=== PATIENT | male | born 1980 | race Caucasian/White ===

== ENCOUNTER → 2019-05-23 16:07 | Outpatient (CLI) | payer OTHER, SELFPAY ==
--- NOTE | 2019-05-23 | DI.MRI.S_ITS ---
PROCEDURE: MR LUMBAR SPINE WO CON INDICATIONS: Low Back Pain TECHNIQUE: Noncontrast sagittal T1 spin echo and T2 fast echo, sagittal STIR, axial T1 and T2 fast spin echo through the lumbar spine. In cases with scoliosis, additional coronal T2 fast spin echo may be performed. COMPARISON: [facility], CR, XR LUMBAR SPINE WITH OLBIQUES PLUS FLEXION EXTENSION, 05/06/2019, 9:57. FINDINGS: Image quality: Excellent. Alignment and Curvature: There is normal bony alignment. Bone Marrow: Marrow is of normal overall signal. No acute vertebral body compression fractures. Mild reactive signal within the endplates adjacent to the L3-L4 and L4-L5 intervertebral discs. Spinal Cord: Conus medullaris terminates at the mid L1 level. Visualized cord demonstrates normal signal and size. Paraspinous Soft Tissues: No paravertebral masses. L1-L2: Mild facet and ligamentum flavum hypertrophy. Mild epidural lipomatosis. No significant canal, nor foraminal stenosis. L2-L3: Mild facet and ligamentum flavum hypertrophy. Mild epidural lipomatosis. Minimal canal stenosis. No foraminal stenosis. L3-L4: Moderate disc desiccation. Mild diffuse disc bulge. Mild facet and ligamentum flavum hypertrophy. Mild epidural lipomatosis. Mild canal stenosis. Mild bilateral foraminal stenosis. L4-L5: Moderate disc desiccation. Mild diffuse disc bulge with superimposed central protrusion. Moderate bilateral facet hypertrophy. Mild canal stenosis. Mild bilateral foraminal stenosis. L5-S1: Moderate disc height loss and desiccation. Mild diffuse disc bulge with superimposed small central protrusion. Mild bilateral facet hypertrophy. No significant canal nor foraminal stenosis. IMPRESSION: 1. Multilevel degenerative disc and facet disease, as well as ligamentum flavum hypertrophy and epidural lipomatosis. 2. Multilevel canal and foraminal stenoses. 3. No neural impingement. Dictated by: Alexus Posey M.D. on 05/23/2019 at 16:59 Approved by: Alexus Posey M.D. on 05/23/2019 at 17:02
== END ==
PROVIDERS: Visit Provider Physical Medicine & Rehabilitation Pain Medicine
DX: M54.5 Low back pain (principal); M51.36 Other intervertebral disc degeneration, lumbar region; M51.37 Other intervertebral disc degeneration, lumbosacral region; M48.061 Spinal stenosis, lumbar region without neurogenic claudication; E88.2 Lipomatosis, not elsewhere classified
CPT/HCPCS: 72148

== ENCOUNTER → 2020-03-19 17:12 | Outpatient (CLI) | payer OTHER, SELFPAY ==
--- NOTE | 2020-03-19 | DI.MRI.S_ITS ---
PROCEDURE: MR SHOULDER RT WO CON INDICATIONS: Right shoulder pain TECHNIQUE: Noncontrast oblique coronal T2 fast spin echo with fat saturation, oblique sagittal T1 spin echo and T2 fast spin echo with fat saturation, axial T1 spin echo and T2 fast spin echo with fat saturation through the shoulder. COMPARISON: None. FINDINGS: Image quality: Excellent. Rotator cuff: There is mild tendinopathy of the supraspinatus with mild bursal sided partial-thickness tearing distally adjacent to its insertion. The infraspinatus , subscapularis, and teres minor appear intact. Sagittal images demonstrate no fatty muscle atrophy. Bones and bursae: No bone marrow contusions or fractures. There is moderate to severe acromioclavicular joint degeneration including capsular hypertrophy, osteophytosis, and periarticular soft tissue and bone marrow edema. The acromion demonstrates slight lateral downsloping, without an os acromiale. A small amount of subacromial-subdeltoid bursal fluid is present. Capsule and soft tissues: There is tearing of the posterosuperior, posterior, and posteroinferior labrum. An associated small lobulated paralabral cyst is demonstrated adjacent to the posterior superior labrum measuring up to approximately 1.1 cm. In the absence of intra-articular contrast, the glenohumeral ligaments appear intact. The long head of the biceps tendon demonstrates normal location and morphology. The rotator interval appears normal, without fibrosis. The coracohumeral ligament is normal in thickness. IMPRESSION: 1. Tearing of the posterosuperior, posterior, and posteroinferior labrum with an associated paralabral cyst. 2. Mild bursal sided partial-thickness tearing in the distal supraspinatus. 3. Moderate to severe acromioclavicular joint degeneration with mild subacromial/subdeltoid bursitis. Dictated by: Fransisco Alvarez M.D. on 03/19/2020 at 18:26 Approved by: Fransisco Alvarez M.D. on 03/19/2020 at 18:32
== END ==
PROVIDERS: Referring Provider Family Medicine; Visit Provider Family Medicine
DX: M25.511 Pain in right shoulder (principal); M75.111 Incomplete rotator cuff tear or rupture of right shoulder, not specified as traumatic; S43.491A Other sprain of right shoulder joint, initial encounter; M19.011 Primary osteoarthritis, right shoulder; M75.51 Bursitis of right shoulder
CPT/HCPCS: 73221

== ENCOUNTER 2020-04-17 12:16 | Emergency (ER) | payer OTHER, SELFPAY ==
[2020-04-17 12:23] VITALS: BP 145/65; PULSE 68; RESP 14; TEMP 36.7; O2SAT 97; BMI 28.5
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
[2020-04-17 13:27] LABS: Add Manual Diff / Slide Review NO; Basophils Absolute Auto 100 /uL (0-100); Basophils Percent Auto 1.1 % (0-2); Eosinophils Absolute Auto 100 /uL (0-450); Eosinophils Percent Auto 1.1 % (2-4); Hematocrit 43.2 % (41-53); Hemoglobin 14.9 g/dL (13.5-17.5); Lymphocytes Absolute Auto 1700 /uL (1100-4500); Lymphocytes Percent Auto 27.3 % (25-40); Mean Corpuscular HGB Conc 34.4 % (30-36); Mean Corpuscular Hemoglobin 32.8 PG (26-34); Mean Corpuscular Volume 95.5 fL (80-100); Monocytes Absolute Auto 700 /uL (0-900); Monocytes Percent Auto 10.8 % (3-14); Neutrophils Absolute Auto 3700 /uL (1500-7000); Neutrophils Percent Auto 59.7 % (50-75); Platelet Count 245 X10^3/uL (150-400); Red Blood Cell Count 4.52 X10^6/uL (4.5-5.9); Red Cell Distribution Width 12.8 % (11.6-14.8); White Blood Cell Count 6.2 X10^3/uL (4.5-11.0)
[2020-04-17 13:36] LABS: PTT Partial Thromboplastin Tim 32 SECONDS (26.4-36.2)
[2020-04-17 13:40] LABS: Prothrombin Time 11.7 SECONDS (10.1-12.7)
[2020-04-17 13:42] LABS: Alanine Aminotransferase 46 IU/L (<50); Albumin 4.5 g/dL (3.5-5.0); Albumin Globulin Ratio 1.3 (1.0-2.8); Alkaline Phosphatase 104 U/L (38-126); Aspartate Aminotransferase 64 IU/L (17-59); BUN Creatinine Ratio 21.7 (6-22); Bilirubin Total 0.7 mg/dL (0.2-1.3); Blood Urea Nitrogen 20 mg/dL (9-20); Calcium 9.5 mg/dL (8.4-10.2); Carbon Dioxide 28 mmol/L (22-32); Chloride 102 mmol/L (98-107); Estimated Glomerular Filt Rate > 60.0 mL/min (>60); Globulin 3.4 g/dL (1.7-4.1); Glucose 114 mg/dL (70-100); HEMOLYSIS < 15 (0-50); Potassium 4.1 mmol/L (3.4-5.1); Sodium 136 mmol/L (137-145); Total Protein 7.9 g/dL (6.3-8.2)
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
[2020-04-17 15:10] VITALS: BP 154/68; PULSE 75; RESP 16; O2SAT 100
[2020-04-17 15:44] VITALS: BP 150/68; PULSE 80; RESP 16; TEMP 36.2; O2SAT 100
== END 2020-04-17 15:44 | disposition home or self-care (01) ==
PROVIDERS: Emergency Provider Emergency Medicine
DX: R51.9 Headache, unspecified (principal); H93.11 Tinnitus, right ear
CPT/HCPCS: 36415; 70496; 70498; 80053; 85025; 85610; 85730; 99284; Q9967

== ENCOUNTER → 2020-08-31 09:10 | Outpatient (CLI) | payer OTHER, SELFPAY ==
[2020-08-31 12:09] LABS: COVID19 -Nasal RAPID Negative (Negative)
== END ==
PROVIDERS: PCP Family Medicine; Visit Provider Physician Assistant
DX: Z20.822 Contact with and (suspected) exposure to COVID-19 (principal)
CPT/HCPCS: 87635

== ENCOUNTER → 2020-09-02 15:17 | Outpatient (CLI) | payer OTHER, SELFPAY ==
--- NOTE | 2020-09-02 15:59 | PM.TREADMILL ---
Cardiac Stress Test Report Referral & Results Date Patient Seen: 09/02/20 Time Patient Seen: 16:00 Requesting provider: Zunilda Wu Indication: Dyspnea Rest ECG: sinus rhythm Procedure Note: Standard Wade protocol, 10:31, 11.2 METS Reduced exercise capacity, YAW +14% Accelerated heart rate response to exercise; hypertensive at baseline No chest pain or anginal symptoms No significant ST changes at peak exercise Impression: Normal exercise stress test Please note: Actual ECG tracings can be found in the PACS system.
--- NOTE | 2020-09-03 16:39 | DI.NM.S_ITS ---
DATE OF SERVICE: 09/02/2020 PROCEDURE: Exercise stress test. INDICATION: Dyspnea on exertion. CARDIAC STRESS: The patient underwent exercise stress test under the supervision of an attending staff. He walked on Wade protocol for 10 minutes and 31 seconds, achieved a maximum heart rate of 181, which was 101 percent of predicted heart rate. Baseline blood pressure 132/90. Peak blood pressure 182/70. The patient achieved 11.2 METs of workload and functional aerobic impairment. Positive 14 percent. Baseline EKG revealed sinus rhythm. There was accelerated heart rate response. The patient did not have any chest pain. Landers some fatigue and shortness of breath. There were no convincing ischemic changes. There were no significant arrhythmias. Heart rate recovery was slow. After 7 minutes in recovery, heart rate was about 117 beats per minute. The resting heart rate was about 95 beats per minute. CONCLUSION: Exercise stress test is negative for inducible ischemia. Fair exercise tolerance. Accelerated heart rate response and slow recovery. No significant arrhythmia seen. The patient walked on Wade protocol for 10 minutes and 31 seconds with functional aerobic impairment positive 14 percent. MorganFransisco rao - RONDA/jose/rick doc#: [id number]/job#: [id number] dd: 09/02/2020 17:53:00 dt: 09/02/2020 19:41:00 DICTATING /COPIES TO: Zunilda Wu MD COPIES MNE: ALFA;
== END ==
PROVIDERS: PCP Family Medicine; Referring Provider Internal Medicine Cardiovascular Disease; Visit Provider Internal Medicine Cardiovascular Disease
DX: R06.09 Other forms of dyspnea (principal)
CPT/HCPCS: 93017

== ENCOUNTER → 2020-09-24 13:49 | Outpatient (CLI) | payer OTHER, SELFPAY ==
--- NOTE | 2020-09-24 | DI.ECHO.S_ITS ---
[facility]---------+ [facility] +---------+ : : [address] : : : : [id number] : : : : Phone: [phone]---------+ Echocardiogram Report + + :Name: MONSE AZAR Study Date: 09/24/2020 Height: 72 in : :[facility] ReadingLocation: Weight: 210 lb : : Gender: Male BSA: 2.2 m2 : :: 1980 Age: 40 yrs BP: 132/86 mmHg: :Reason For Study: DYSPNEA : :Ordering Physician: JORDAN, : :GURJIT Performed By: Tricia Palacios : :Referring: ADÁN LUNA : + + Interpretation Summary The left ventricle is normal in size and wall thickness. The ejection fraction is estimated to be 60-65%. The right ventricle is normal in size and function. No significant valvular pathology seen. The IVC is of normal diameter and collapses greater than 50% with a sniff. This suggests a low right atrial pressure of 3 mm Hg. Procedure: A two-dimensional transthoracic echocardiogram with color flow and Doppler was performed. The study quality was technically adequate. There is no prior echocardiogram noted for this patient. The patient was in sinus rhythm with heart rates between 81-94 bpm during the exam. Left Ventricle: The left ventricle is normal in size and wall thickness. There is no thrombus. The ejection fraction is estimated to be 60-65%. There are no focal wall motion abnormalities. Diastolic parameters suggest probable normal left ventricular diastolic function and normal filling pressures. Right Ventricle: The right ventricle is normal in size and function. Atria: The left atrial size is normal. Right atrial size is normal. There is no Doppler evidence for an interatrial shunt. Mitral Valve: The mitral valve is normal in structure and function. There is trace mitral regurgitation. Aortic Valve: The aortic valve is trileaflet. The aortic valve opens well. There is no aortic valve stenosis. No aortic regurgitation is present. Tricuspid Valve: The tricuspid valve is normal in structure and function. Pulmonary artery pressures cannot be estimated because of the lack of a measurable TR jet velocity. There is trace tricuspid regurgitation. Pulmonic Valve: The pulmonic valve leaflets are thin and pliable; valve motion is normal. There is no pulmonic valvular regurgitation. Great Vessels: The aortic root is normal size. The ascending aorta is normal in size. The IVC is of normal diameter and collapses greater than 50% with a sniff. This suggests a low right atrial pressure of 3 mm Hg. Pericardium/ Pleura There is no pericardial effusion. There is no pleural effusion. MMode/2D Measurements & Calculations LVIDd: 5.0 cm LVOT diam: 2.0 cm LVIDs: 3.2 cm Ao root diam: 3.3 cm FS: 37.3 % asc Aorta Diam: 3.5 cm EPSS: 0.53 cm IVSd: 0.94 cm LVPWd: 0.79 cm LV girard. diameter/BSA (cm/m^2): 2.3 LV sys. diameter/BSA (cm/m^2): 1.5 LA A2 area: 18.1 cm2 RA long axis: 5.1 cm LA A4 area: 19.5 cm2 RA area: 16.5 cm2 LA length (vol): 5.7 cm RA vol: 45.1 ml LA vol: 52.5 ml RA : 20.7 ml/m2 LA vol index: 24.2 ml/m2 IVC diam: 1.00 cm RVD1 (basal): 2.8 cm TAPSE: 2.0 cm Doppler Measurements & Calculations Ao V2 max: 170.2 cm/sec LVOT Max Cedrick: 130.6 cm/sec Ao V2 mean: 108.9 cm/sec LV V1 max P.8 mmHg Ao max P.6 mmHg LV V1 VTI: 23.5 cm Ao mean P.5 mmHg KATELIN(I,D): 3.1 cm2 Ao V2 VTI: 24.9 cm KATELIN(V,D): 2.5 cm2 sev ratio: 0.95 KATELIN indexed to BSA (cm^2/m^2): 1.4 MV E max cedrick: 70.2 cm/sec PA V2 max: 108.0 cm/sec MV A max cedrick: 66.8 cm/sec PA V2 mean: 75.3 cm/sec MV E/A: 1.1 PA mean P.5 mmHg Med Peak E' Cedrick: 11.4 cm/sec PA pr(Accel): 40.5 mmHg E/E' med: 6.2 Lat Peak E' Cedrick: 12.7 cm/sec E/E' lat: 5.5 E/e' average: 5.9 MV dec time: 0.25 sec SV(LVOT): 77.4 ml Reading Physician:12:30 PM
== END ==
PROVIDERS: PCP Family Medicine; Referring Provider Internal Medicine Cardiovascular Disease; Visit Provider Internal Medicine Cardiovascular Disease
DX: R06.00 Dyspnea, unspecified (principal)
CPT/HCPCS: 93306

== ENCOUNTER 2020-10-13 09:30 | Outpatient (RCR) | payer OTHER, SELFPAY ==
--- NOTE | 2020-07-01 15:30 | OT.OP.EVAL ---
Visit Care Team Role Provider Type Aline Jaeger MD Attending Provider Non-Staff Primary Care Provider Referring Provider Specialty: Family Practice Address: [address] [place] [address], [facility] Email: Occupational Therapy Initial Evaluation OT Outpatient Adult Evaluation Start: 07/02/20 08:34 Freq: Status: Active Protocol: Document 07/01/20 15:30 AMS (Rec: 07/02/20 08:55 AMS [id number]) General Information Visit Start Time 07:30 Visit Stop Time 08:15 Total Visit Minutes 45 Plan of Care Dates 07/01/20-08/26/20 Insurance Information Prime Treatment Setting Outpatient Care Note Type Initial Evaluation Identification Confirmed Yes Goals Fpc Goals 1. Patient will be modified independent with distal UE home exercise program utilizing provided written and visual instructions from therapist. 2. Patient will verbalize 100 % understanding of basic joint protection principles referencing provided written and visual instructions from therapist on an as needed basis. 3. Patient will be able to verbalize 2 to 3 different conservative pain management techniques for the hands referencing provided written and visual instructions from therapist on an as needed basis. Assessment/Plan Treatment Assessment Patient is a 39 year-old right hand dominant male referred to outpatient OT by primary care physician secondary to bilateral thumb pain/pain in unspecified joints of bilateral hands. 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 PMH: Significant for back pain; headaches; hearing problems; memory loss; neck pain; shortness of breath; TBI; vision problems and surgery. Fransisco would like to reduce the pain/discomfort he is experiencing in both of his hands; he reports pain w/ gripping and movement. Pain Assessment Grid reveals 8 out of 10 pain relative to bilateral thumbs w/ sensitivity to palpation at bilateral CMC joints. Pain Assessment Grid also reveals 4 out of 10 pain relative to bilateral medial DIP joints of the fourth digits (ring fingers). Fransisco completed QuickDASH UE Outcome Measure obtained a score of 20.5. Mago reports that his PCP ordered x-rays of bilateral hands to determine presence of arthritis; Fransisco stated that x-rays did not reveal signs/ symptoms of arthritis. Mild swelling of hands. (-) current use of hand/digit splints. (+ ) tightness of bilateral adductor pollicus muscles w/ tightness R > L. (-) current implementation of basic joint protection principles to avoid exacerbation of pain symptoms . Fransisco reports that symptoms can present w/ transferring of equipment/gear and /or when completing building projects/transporting materials for the home. Outpatient OT is recommended to address pain/discomfort, provide education, develop HEP , to support Fransisco's success w/ active participation in meaningful activities in the home, at work, and within the community. Comment 8 weeks Treatment Frequency Once a Week Therapeutic Contents Active Range of Motion, Adaptive Equipment Education, Client Education,Cognitive Skills Development,Functional Activities,Home Exercise Program,Joint Protection, Manual Therapy,Education, Neuromuscular Re-Education, Therapeutic Activities, Therapeutic Exercises, Modalities Types of Modalities Contrast Bath,E-Stim,Ice Massage,Ultrasound Additional Types of Modalities Paraffin/Heat
--- NOTE | 2020-07-06 13:01 | OT.OP.TRT ---
Visit Care Team Role Provider Type Aline Jaeger MD Attending Provider Non-Staff Primary Care Provider Referring Provider Specialty: Family Practice Address: [address] [place] [address], [id number] Email: Occupational Therapy Treatment Note OT Outpatient Treatment Note - Adult Start: 07/06/20 12:55 Freq: Status: Active Protocol: Document 07/06/20 12:56 AMS (Rec: 07/06/20 13:01 AMS [id number]) OT Outpatient Adult Treatment Note Session Time Visit Start Time 09:30 Visit Stop Time 10:15 Total Visit Minutes 45 Visit Information Plan of Care Dates 07/01/20-08/26/20 Setting Treatment Setting Outpatient Care Visit Type Note Type Treatment Note General Information General Information Patient is a 39 year-old right hand dominant male referred to outpatient OT by primary care physician secondary to bilateral thumb pain/pain in unspecified joints of bilateral hands. 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 PMH: Significant for back pain; headaches; hearing problems; memory loss; neck pain; shortness of breath; TBI; vision problems and surgery. - Subjective Identification Type Name Identification Reconciled With Medical Record Observations Both hands felt good when I left. Then they were sore here [CMC joints] in both hands. Then they felt good again per Fransisco. Patient/Caregiver Compliance with Home Excellent Exercise Program - Objective Objective Measurements Please refer to below for progress towards meeting established OT goals. Assisted Goals 1. Patient will be modified independent with distal UE home exercise program utilizing provided written and visual instructions from therapist. 2. Patient will verbalize 100 % understanding of basic joint protection principles referencing provided written and visual instructions from therapist on an as needed basis. 3. Patient will be able to verbalize 2 to 3 different conservative pain management techniques for the hands referencing provided written and visual instructions from therapist on an as needed basis. - Treatment 3 Descriptor Ultrasound. 1.8 w/cm2. 20% duty cycle. Bilateral CMC joints. Skin intact pre- and post- treatments bilaterally. 2 Descriptor Manual therapy. Addressed bilateral adductor pollicus tightness; R > L. 1 Descriptor HEP/POC. Reviewed recommendations. - Assessment Assessment of Improvement Some relief from ultasound per patient report post- previous treatment session. (+) compliance and carry-over of bilateral self-manual release adductor pollicus. Recommend considering other modalities, reviewing joint protection principles and considering strengthening out of pattern. Home Exercise Program Please refer to treatment section of note for specific details. - Plan Therapy Recommendations Continue with Current Program, Advance per Rehabilitation Protocol
--- NOTE | 2020-07-13 15:30 | OT.OP.TRT ---
Visit Care Team Role Provider Type Aline Jaeger MD Attending Provider Non-Staff Primary Care Provider Referring Provider Specialty: Family Practice Address: [address] [place] [address], Counts include 234 beds at the [facility] Email: Occupational Therapy Treatment Note OT Outpatient Treatment Note - Adult Start: 07/06/20 12:55 Freq: Status: Active Protocol: Document 07/13/20 15:30 AMS (Rec: 07/14/20 08:54 AMS [id number]) OT Outpatient Adult Treatment Note Session Time Visit Start Time 09:30 Visit Stop Time 10:15 Total Visit Minutes 45 Visit Information Plan of Care Dates 07/01/20-08/26/20 Setting Treatment Setting Outpatient Care Visit Type Note Type Treatment Note General Information General Information Patient is a 39 year-old right hand dominant male referred to outpatient OT by primary care physician secondary to bilateral thumb pain/pain in unspecified joints of bilateral hands. 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 PMH: Significant for back pain; headaches; hearing problems; memory loss; neck pain; shortness of breath; TBI; vision problems and surgery. - Subjective Identification Type Name Identification Reconciled With Medical Record Observations We rode the ATVs and this hand was killing me per Fransisco. Patient/Caregiver Compliance with Home Excellent Exercise Program - Objective Objective Measurements Please refer to below for progress towards meeting established OT goals. Distribution Warehouse Manager Goals 1. Patient will be modified independent with distal UE home exercise program utilizing provided written and visual instructions from therapist. 2. Patient will verbalize 100 % understanding of basic joint protection principles referencing provided written and visual instructions from therapist on an as needed basis. 3. Patient will be able to verbalize 2 to 3 different conservative pain management techniques for the hands referencing provided written and visual instructions from therapist on an as needed basis. - Treatment 3 Descriptor Ultrasound. 1.8 w/cm2. 20% duty cycle. Bilateral CMC joints. Skin intact pre- and post- treatments bilaterally. 2 Descriptor Manual therapy. Facilitation of R forearm supination. Facilitation of R wrist/digit extension. R carpal joint mobilizations. 1 Descriptor HEP/POC. Reviewed basic joint protection principles; discussed avoidance of sustained swim instructor/tight pinches. Discussed possible use of splint; Fransisco indicated that he would likely not be consistent with its use given work/preferred tasks. Instructed in extensor thumb stretch w/ opposition to base of 5th digit; instructed in wrist/digit extensor stretch w / supination w/ elbow in 90 degrees. Did not tolerate stretch w/ elbow extension or combined UD. Provided medium firm and firm theraputty; instructed in thumb abductor and thumb extension strengthening exercise. Instructed in care of theraputty; theraputty provided in ziplock bag. Instructed to complete stretches daily and as needed throughout the day. Instructed in strengthening exercises x 15 reps as tolerated. Fransisco denied questions. - Assessment Assessment of Improvement Exacerbation of pain/symptoms of R hand w/ use of ATV for work tasks; use of heat and oral anti inflammatory medication for symptom management. Tightness w/ tendency into pronated position of forearm of R; (+) tenderness to palpation at CMCJ R and discomfort encountered w/ thumb opposition to base of 5th digit w/ increased pain/ discomfort w/ opposition combined w/ wrist UD. Presenting symptoms suggest possible tendon inflammatory response secondary to repetitive abduction/extension /skirt trimmer required w/ ATV use. Will need to monitor if symptoms persist or decrease w / rest/change in day-to-day tasks. Advanced HEP; instructed to stop/reduce repetitions if symptoms are exacerbated. Recommend reviewing stretches at time of next treatment session. Home Exercise Program Please refer to treatment section of note for specific details. - Plan Therapy Recommendations Continue with Current Program, Advance per Rehabilitation Protocol
--- NOTE | 2020-07-20 15:30 | OT.OP.TRT ---
Visit Care Team Role Provider Type Aline Jaeger MD Attending Provider Non-Staff Primary Care Provider Referring Provider Specialty: Family Practice Address: [address] [place] [address], [id number] Email: Occupational Therapy Treatment Note OT Outpatient Treatment Note - Adult Start: 07/06/20 12:55 Freq: Status: Active Protocol: Document 07/20/20 15:30 AMS (Rec: 07/23/20 09:12 AMS [id number]) OT Outpatient Adult Treatment Note Session Time Visit Start Time 09:30 Visit Stop Time 10:15 Total Visit Minutes 45 Visit Information Plan of Care Dates 07/01/20-08/26/20 Setting Treatment Setting Outpatient Care Visit Type Note Type Treatment Note General Information General Information Patient is a 39 year-old right hand dominant male referred to outpatient OT by primary care physician secondary to bilateral thumb pain/pain in unspecified joints of bilateral hands. 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 PMH: Significant for back pain; headaches; hearing problems; memory loss; neck pain; shortness of breath; TBI; vision problems and surgery. - Subjective Identification Type Name Identification Reconciled With Medical Record Observations I have been using the theraputty and this right thumb has been cramping per Fransisco. Patient/Caregiver Compliance with Home Excellent Exercise Program - Objective Objective Measurements Please refer to below for progress towards meeting established OT goals. Linotype Machinist Goals 1. Patient will be modified independent with distal UE home exercise program utilizing provided written and visual instructions from therapist. 2. Patient will verbalize 100 % understanding of basic joint protection principles referencing provided written and visual instructions from therapist on an as needed basis. 3. Patient will be able to verbalize 2 to 3 different conservative pain management techniques for the hands referencing provided written and visual instructions from therapist on an as needed basis. - Treatment 2 Descriptor Manual therapy. Facilitation of R forearm supination. Facilitation of R wrist/digit extension. R carpal joint mobilizations. 1 Descriptor HEP/POC. Reviewed basic joint protection principles; discussed avoidance of sustained clinical asst/tight pinches. Reviewed stretches; extensor thumb stretch w/ opposition to base of 5th digit; wrist/ digit extensor stretch w/ supination w/ elbow in 90 degrees. Provided soft medium (red) theraputty; instructed to complete gentle thumb strengthening. Instructed in care of theraputty; theraputty provided in ziplock bag. Fransisco denied questions. - Assessment Assessment of Improvement Exacerbation of pain/symptoms of R thumb with described ' locking'; denied locking of thumb with active flexion. Expressed that symptom(s) occurred with thumb extension. h/o right wrist fracture; h/o dorsal ganglion cyst w/ non- medical management (comes and goes per Fransisco). Tightness w/ tendency towards forearm pronation at rest; tightness w / thumb opposition and passive UD. Unable to advanced to elbow ext w/ PROM exercises. Reduced resistance w/ HEP strengthening exercises; instructed to stop/reduce repetitions if symptoms are exacerbated. Recommend consideration of advancement of ROM to elbow extension. Home Exercise Program Please refer to treatment section of note for specific details. - Plan Therapy Recommendations Continue with Current Program, Advance per Rehabilitation Protocol
--- NOTE | 2020-08-13 15:30 | OT.OP.TRT ---
Visit Care Team Role Provider Type Aline Jaeger MD Attending Provider Non-Staff Primary Care Provider Referring Provider Specialty: Family Practice Address: [address] [place] [address], [id number] Email: Occupational Therapy Treatment Note OT Outpatient Treatment Note - Adult Start: 07/06/20 12:55 Freq: Status: Active Protocol: Document 08/13/20 15:30 AMS (Rec: 08/14/20 13:22 AMS [id number]) OT Outpatient Adult Treatment Note Session Time Visit Start Time 10:30 Visit Stop Time 10:10 Total Visit Minutes 40 Visit Information Plan of Care Dates 07/01/20-08/26/20 Setting Treatment Setting Outpatient Care Visit Type Note Type Treatment Note General Information General Information Patient is a 39 year-old right hand dominant male referred to outpatient OT by primary care physician secondary to bilateral thumb pain/pain in unspecified joints of bilateral hands. 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 PMH: Significant for back pain; headaches; hearing problems; memory loss; neck pain; shortness of breath; TBI; vision problems and surgery. - Subjective Identification Type Name Identification Reconciled With Medical Record Observations I had to do some things for work. I forgot to bring my theraputty with me and this thumb started to bother me per Fransisco. Patient/Caregiver Compliance with Home Excellent Exercise Program - Objective Objective Measurements Please refer to below for progress towards meeting established OT goals. Senior Living Goals 1. Patient will be modified independent with distal UE home exercise program utilizing provided written and visual instructions from therapist. 2. Patient will verbalize 100 % understanding of basic joint protection principles referencing provided written and visual instructions from therapist on an as needed basis. 3. Patient will be able to verbalize 2 to 3 different conservative pain management techniques for the hands referencing provided written and visual instructions from therapist on an as needed basis. - Treatment 2 Descriptor Manual therapy. Facilitation of R forearm supination. Facilitation of R wrist/digit extension. R carpal joint mobilizations. 1 Descriptor HEP/POC. Reviewed stretches; extensor thumb stretch w/ opposition to base of 5th digit; wrist/digit extensor stretch w/ supination w/ elbow in 90 degrees. Fransisco denied questions. - Assessment Assessment of Improvement Exacerbation of pain/symptoms of R thumb reported d/t gap in treatment, work tasks, and forgetting theraputty on trip. h/o right wrist fracture; h/o dorsal ganglion cyst w/ non- medical management (comes and goes per Frnasisco). Tightness w/ tendency towards forearm pronation at rest; tightness w / thumb opposition and passive UD. Still unable to advanced to elbow ext w/ PROM exercises . Recommend consideration of advancement of ROM to elbow extension. Home Exercise Program Please refer to treatment section of note for specific details. - Plan Therapy Recommendations Continue with Current Program, Advance per Rehabilitation Protocol
--- NOTE | 2020-08-20 15:30 | OT.OP.TRT ---
Visit Care Team Role Provider Type Aline Jaeger MD Attending Provider Non-Staff Primary Care Provider Referring Provider Specialty: Family Practice Address: [address] [place] [address], [id number] Email: Occupational Therapy Treatment Note OT Outpatient Treatment Note - Adult Start: 07/06/20 12:55 Freq: Status: Active Protocol: Document 08/20/20 15:30 AMS (Rec: 08/21/20 10:06 AMS [id number]) OT Outpatient Adult Treatment Note Session Time Visit Start Time 12:30 Visit Stop Time 13:15 Total Visit Minutes 45 Visit Information Plan of Care Dates 07/01/20-08/26/20 Setting Treatment Setting Outpatient Care Visit Type Note Type Treatment Note General Information General Information Patient is a 39 year-old right hand dominant male referred to outpatient OT by primary care physician secondary to bilateral thumb pain/pain in unspecified joints of bilateral hands. 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 PMH: Significant for back pain; headaches; hearing problems; memory loss; neck pain; shortness of breath; TBI; vision problems and surgery. - Subjective Identification Type Name Identification Reconciled With Medical Record Observations A couple hours after the appointment my thumb is really painful and then about 6 hours it just feels weak. I feel like the range of motion is better. I still can't do that one [in re: passive wrist and digit ext w/ forearm supination]. I am going to be having shoulder surgery per Franissco. Patient/Caregiver Compliance with Home Excellent Exercise Program - Objective Objective Measurements Please refer to below for progress towards meeting established OT goals. 08/20/20= able to oppose thumb to base of 5th digit with UD without complaints of pain/discomfort. Precast Molder Goals 1. Patient will be modified independent with distal UE home exercise program utilizing provided written and visual instructions from therapist. 2. Patient will verbalize 100 % understanding of basic joint protection principles referencing provided written and visual instructions from therapist on an as needed basis. 3. Patient will be able to verbalize 2 to 3 different conservative pain management techniques for the hands referencing provided written and visual instructions from therapist on an as needed basis. - Treatment 3 Descriptor Ultrasound. 1.8 w/cm2. 20% duty cycle. Address inflammation. x 15 minutes. R hand. Skin intact pre- and post- treatment. 2 Descriptor Manual therapy. Facilitation of R forearm supination. Facilitation of R wrist/digit extension. R carpal joint mobilizations. 1 Descriptor HEP/POC. Reviewed home exercise program; report of stretch of wrist/digit flexors w/ forearm in pronation and wrist/digits in extension w/ elbow in 90 degrees. Not tolerating supination. Recommended transitioning to elbow extension versus forearm supination as tolerated. Instructed on strengthening of CMC w/ rubberband proximal to MPJ of R thumb. Practiced in treatment session w/ tendency to transition to ext/thus, rec repeating. Discussed use of ice cup for swelling management based on positive response. Fransisco denied questions. - Assessment Assessment of Improvement h/o right wrist fracture; h/o dorsal ganglion cyst w/ non- medical management (comes and goes per Fransisco). Pain/ discomfort of R thumb reported 2 hours post treatment; thus, made adjustments to manual accordingly. Denial of pain/ discomfort w/ thumb tuck w/ UD ; decreased tightness of R thumb adductor as noted w/ manual release. This suggests progress being made and carry- over of home exercise program. Unable to transition to supinated forearm stretches; recommend transitioning to elbow ext as tolerated. Instructed in CMC resistance exercise; (+) variability w/ positioning noted w/ execution of this exercise. Thus, rec repeating. Home Exercise Program Please refer to treatment section of note for specific details. - Plan Therapy Recommendations Continue with Current Program, Advance per Rehabilitation Protocol
--- NOTE | 2020-08-24 11:30 | OT.OPPN ---
Current Diagnoses Pain in unspecified finger(s) (08/24/20) OT Progress Note OT Outpatient Treatment Note - Adult Start: 07/06/20 12:55 Freq: Status: Active Protocol: Document 08/24/20 11:30 AMS (Rec: 08/26/20 11:28 AMS [id number]) OT Outpatient Adult Treatment Note Session Time Visit Start Time 07:30 Visit Stop Time 08:15 Total Visit Minutes 45 Visit Information Plan of Care Dates 08/24/20-11/16/20 Setting Treatment Setting Outpatient Care Visit Type Note Type Progress Note General Information General Information Patient is a 39 year-old right hand dominant male referred to outpatient OT by primary care physician secondary to bilateral thumb pain/pain in unspecified joints of bilateral hands. 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 PMH: Significant for back pain; headaches; hearing problems; memory loss; neck pain; shortness of breath; TBI; vision problems and surgery. - Subjective Identification Type Name Identification Reconciled With Medical Record Observations Fransisco inquired about accessing outpatient medical documentation for OT. Therapist referred him to Medical Records. Patient/Caregiver Compliance with Home Excellent Exercise Program - Objective Objective Measurements Please refer to below for progress towards meeting established OT goals. 08/20/20= able to oppose thumb to base of 5th digit with UD without complaints of pain/discomfort. Nursing Home Goals 1. Patient will be modified independent with distal UE home exercise program utilizing provided written and visual instructions from therapist. 08/24/20= 75% met 2. Patient will verbalize 100 % understanding of basic joint protection principles referencing provided written and visual instructions from therapist on an as needed basis. 3. Patient will be able to verbalize 2 to 3 different conservative pain management techniques for the hands referencing provided written and visual instructions from therapist on an as needed basis. - Treatment 3 Descriptor Ultrasound. 1.8 w/cm2. 20% duty cycle. Address inflammation. x 15 minutes. R hand. Skin intact pre- and post- treatment. 2 Descriptor Manual therapy. Facilitation of R forearm supination. Facilitation of R wrist/digit extension. R carpal joint mobilizations. 1 Descriptor HEP/POC. Reviewed home exercise program; provided written and visual instructions for exercises which will also be scanned into patient's chart. Initiated modified passive supination stretch; instructed to complete as tolerated. Recommend providing visual instructions for this stretch at time of next treatment session. Fransisco denied questions. - Assessment Assessment of Improvement Fransisco has made progress over the last certification period relative to pain-free ROM; he is now able to execute thumb tuck w/ wrist UD without c/o pain/discomfort and is able to complete passive wrist ext/ flex w/ elbow in 90 degrees. Fransisco is also demonstrating decreased adductor pollicus tenderness of R compared to initial evaluation and is carrying over self manual release. 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 Fransisco has been unable to progress to supinated wrist ext/flex stretch d/t pain/ discomfort. Increased tightness and tendency into pronated pattern of R forearm. Fransisco has a h/o R wrist fracture and dorsal ganglion cyst w/ non-medical management . Fransisco is reporting less pain/discomfort of bilateral thumbs and has been instructed in use of heat and ice. He has been instructed in gentle strengthening with theraputty. Based on progress that has been made, gains could be made with supination and distal UE strengthening to support functional day-to-day task completion. Home Exercise Program Please refer to treatment section of note for specific details. - Plan Therapy Recommendations Continue with Current Program, Advance per Rehabilitation Protocol Comment 12 weeks Frequency of Treatment Once a Week Therapeutic Contents Active Range of Motion, Adaptive Equipment Education, Client Education,Cognitive Skills Development,Functional Activities,Home Exercise Program,Joint Protection, Manual Therapy,Education, Neurodevelopment Treatment, Neuromuscular Re-Education, Self-Care,Stretching/ Flexibility Activities, Therapeutic Activities, Therapeutic Exercises, Modalities Modalities As Needed,As Prescribed Types of Modalities Ultrasound Additional Types of Modalities heat/ice
--- NOTE | 2020-09-08 15:30 | OT.OP.TRT ---
Visit Care Team Role Provider Type Aline Jaeger MD Attending Provider Non-Staff Primary Care Provider Referring Provider Specialty: Family Practice Address: [address] [place] [address], [id number] Email: Occupational Therapy Treatment Note OT Outpatient Treatment Note - Adult Start: 07/06/20 12:55 Freq: Status: Active Protocol: Document 09/08/20 15:30 AMS (Rec: 09/09/20 11:46 AMS [id number]) OT Outpatient Adult Treatment Note Session Time Visit Start Time 08:30 Visit Stop Time 09:10 Total Visit Minutes 40 Visit Information Plan of Care Dates 08/24/20-11/16/20 Setting Treatment Setting Outpatient Care Visit Type Note Type Treatment Note General Information General Information Patient is a 39 year-old right hand dominant male referred to outpatient OT by primary care physician secondary to bilateral thumb pain/pain in unspecified joints of bilateral hands. 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 PMH: Significant for back pain; headaches; hearing problems; memory loss; neck pain; shortness of breath; TBI; vision problems and surgery. - Subjective Identification Type Name Identification Reconciled With Medical Record Observations 'Locking up of thumb' post use of theraputty. Patient/Caregiver Compliance with Home Excellent Exercise Program - Objective Objective Measurements Please refer to below for progress towards meeting established OT goals. 08/20/20= able to oppose thumb to base of 5th digit with UD without complaints of pain/discomfort. [facility] Goals 1. Patient will be modified independent with distal UE home exercise program utilizing provided written and visual instructions from therapist. 08/24/20= 75% met 2. Patient will verbalize 100 % understanding of basic joint protection principles referencing provided written and visual instructions from therapist on an as needed basis. 3. Patient will be able to verbalize 2 to 3 different conservative pain management techniques for the hands referencing provided written and visual instructions from therapist on an as needed basis. - Treatment 3 Descriptor Ultrasound. 1.8 w/cm2. 20% duty cycle. Address inflammation. x 15 minutes. R hand. Skin intact pre- and post- treatment. 2 Descriptor Manual therapy. Facilitation of R forearm supination. Facilitation of R wrist/digit extension. R carpal joint mobilizations. 1 Descriptor HEP/POC. Reviewed home exercise program; provided written and visual instructions for exercises which will also be scanned into patient's chart. Initiated modified passive supination stretch; instructed to complete as tolerated. Recommend providing visual instructions for this stretch at time of next treatment session. Fransisco denied questions. - Assessment Assessment of Improvement Increased tightness and tendency into pronated pattern of R forearm. Fransisco has a h/ o R wrist fracture and dorsal ganglion cyst w/ non-medical management. Increasing tolerance for passive wrist extension w/ forearm supinated and elbow near full extension ; protective posturing is noted w/ sh hiking however. Report of locking up w/ theraputty; thus, recommended use of rubberband(s) w/ resisted exercises given that rubberband use does not appear to exacerbate symptoms at this time. Reducing pain medications at this time; will need to monitor impact on presenting symptoms. Home Exercise Program Please refer to treatment section of note for specific details. - Plan Therapy Recommendations Continue with Current Program, Advance per Rehabilitation Protocol Types of Modalities Ultrasound Additional Types of Modalities heat/ice
--- NOTE | 2020-09-29 15:30 | OT.OP.TRT ---
Visit Care Team Role Provider Type Aline Jaeger MD Attending Provider Non-Staff Primary Care Provider Referring Provider Specialty: Family Practice Address: [address] [place] [address], [id number] Email: Occupational Therapy Treatment Note OT Outpatient Treatment Note - Adult Start: 07/06/20 12:55 Freq: Status: Active Protocol: Document 09/29/20 15:30 AMS (Rec: 10/01/20 11:32 AMS [id number]) OT Outpatient Adult Treatment Note Session Time Visit Start Time 09:30 Visit Stop Time 10:10 Total Visit Minutes 40 Visit Information Plan of Care Dates 08/24/20-11/16/20 Setting Treatment Setting Outpatient Care Visit Type Note Type Treatment Note General Information General Information Patient is a 39 year-old right hand dominant male referred to outpatient OT by primary care physician secondary to bilateral thumb pain/pain in unspecified joints of bilateral hands. 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 PMH: Significant for back pain; headaches; hearing problems; memory loss; neck pain; shortness of breath; TBI; vision problems and surgery. - Subjective Identification Type Name Identification Reconciled With Medical Record Observations Patient completed Pain Assessment Grid and QuickDASH UE Outcome Measure; forms have been scanned into electronic medical documentation. Patient/Caregiver Compliance with Home Excellent Exercise Program - Objective Objective Measurements Please refer to below for progress towards meeting established OT goals. 08/20/20= able to oppose thumb to base of 5th digit with UD without complaints of pain/discomfort. [facility] Goals 1. Patient will be modified independent with distal UE home exercise program utilizing provided written and visual instructions from therapist. 08/24/20= 75% met GOALS MET Patient will verbalize 100% understanding of basic joint protection principles referencing provided written and visual instructions from therapist on an as needed basis. *MET 09/29/20 Patient will be able to verbalize 2 to 3 different conservative pain management techniques for the hands referencing provided written and visual instructions from therapist on an as needed basis. *MET 09/29/20 - Treatment 3 Descriptor Ultrasound. 1.8 w/cm2. 20% duty cycle. Address inflammation. x 15 minutes. R hand. Skin intact pre- and post- treatment. 2 Descriptor Manual therapy. Facilitation of R forearm supination. Facilitation of R wrist/digit extension. R carpal joint mobilizations. 1 Descriptor HEP/POC. Reviewed home exercise program. Reviewed self-manual release of thumb adductor w/ slight adjustment radially. Demonstrated for therapist in session. Instructed in self distrction of thumb w/ grasping of thumb at base w/ elbows in 90 degrees and retracting. Demonstrated for therapist in session. Denied questions. Fransisco denied questions. - Assessment Assessment of Improvement Decreased pain/discomfort of thumb compared to initial evaluation; indicated 2 out of 10 on pain scale relative to right thumb versus initial 8 out of 10. Improved functional abilities of hands compared to time of initial evaluation; disability score of 11.36 versus initial 20.5. Introduced self-thumb distraction and instructed on modified version of self- manual release of thumb adductor. Instructed to return to PCP in re: any supplements or diet changes that could assist with pain/management and/or the body's inflammatory response. Home Exercise Program Please refer to treatment section of note for specific details. - Plan Therapy Recommendations Continue with Current Program, Advance per Rehabilitation Protocol
--- NOTE | 2020-10-13 11:43 | OT.OP.DC ---
Visit Care Team Role Provider Type Aline Jaeger MD Attending Provider Non-Staff Primary Care Provider Referring Provider Address: [address] [place] [address], [id number] Email: OT Outpatient OT Outpatient Adult Evaluation Start: 07/02/20 08:34 Freq: Status: Active Protocol: Document 07/01/20 15:30 AMS (Rec: 07/02/20 08:55 AMS [id number]) General Information Session Time Visit Start Time 07:30 Visit Stop Time 08:15 Total Visit Minutes 45 Visit Information Plan of Care Dates 07/01/20-08/26/20 Insurance Information [facility] Setting Treatment Setting Outpatient Care Visit Type Note Type Initial Evaluation Identification Identification Confirmed Yes Goals [facility] Goals [employer] Goals 1. Patient will be modified independent with distal UE home exercise program utilizing provided written and visual instructions from therapist. 2. Patient will verbalize 100 % understanding of basic joint protection principles referencing provided written and visual instructions from therapist on an as needed basis. 3. Patient will be able to verbalize 2 to 3 different conservative pain management techniques for the hands referencing provided written and visual instructions from therapist on an as needed basis. Assessment/Plan Assessment Treatment Assessment Patient is a 39 year-old right hand dominant male referred to outpatient OT by primary care physician secondary to bilateral thumb pain/pain in unspecified joints of bilateral hands. 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 PMH: Significant for back pain; headaches; hearing problems; memory loss; neck pain; shortness of breath; TBI; vision problems and surgery. Fransisco would like to reduce the pain/discomfort he is experiencing in both of his hands; he reports pain w/ gripping and movement. Pain Assessment Grid reveals 8 out of 10 pain relative to bilateral thumbs w/ sensitivity to palpation at bilateral CMC joints. Pain Assessment Grid also reveals 4 out of 10 pain relative to bilateral medial DIP joints of the fourth digits (ring fingers). Fransisco completed QuickDASH UE Outcome Measure obtained a score of 20.5. Mago reports that his PCP ordered x-rays of bilateral hands to determine presence of arthritis; Fransisco stated that x-rays did not reveal signs/ symptoms of arthritis. Mild swelling of hands. (-) current use of hand/digit splints. (+ ) tightness of bilateral adductor pollicus muscles w/ tightness R > L. (-) current implementation of basic joint protection principles to avoid exacerbation of pain symptoms . Fransisco reports that symptoms can present w/ transferring of equipment/gear and /or when completing building projects/transporting materials for the home. Outpatient OT is recommended to address pain/discomfort, provide education, develop HEP , to support Fransisco's success w/ active participation in meaningful activities in the home, at work, and within the community. Plan Comment 8 weeks Treatment Frequency Once a Week Therapeutic Contents Active Range of Motion, Adaptive Equipment Education, Client Education,Cognitive Skills Development,Functional Activities,Home Exercise Program,Joint Protection, Manual Therapy,Education, Neuromuscular Re-Education, Therapeutic Activities, Therapeutic Exercises, Modalities Types of Modalities Contrast Bath,E-Stim,Ice Massage,Ultrasound Additional Types of Modalities Paraffin/Heat Sensory Assessment Sensory Profile2 Functional Wrist/Hand Scan Hand Side OT Outpatient Treatment Note - Adult Start: 07/06/20 12:55 Freq: Status: Active Protocol: Document 10/13/20 11:36 AMS (Rec: 10/13/20 11:43 AMS [id number]) OT Outpatient Adult Treatment Note Session Time Visit Start Time 09:30 Visit Stop Time 10:05 Total Visit Minutes 35 Visit Information Plan of Care Dates 08/24/20-11/16/20 Setting Treatment Setting Outpatient Care Visit Type Note Type Treatment Note General Information General Information Patient is a 39 year-old right hand dominant male referred to outpatient OT by primary care physician secondary to bilateral thumb pain/pain in unspecified joints of bilateral hands. 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 PMH: Significant for back pain; headaches; hearing problems; memory loss; neck pain; shortness of breath; TBI; vision problems and surgery. - Subjective Identification Type Name Identification Reconciled With Medical Record Observations Patient denied questions. Patient/Caregiver Compliance with Home Excellent Exercise Program - Objective Objective Measurements Please refer to below for progress towards meeting established OT goals. 08/20/20= able to oppose thumb to base of 5th digit with UD without complaints of pain/discomfort. [employer] Goals GOALS MET Patient will verbalize 100% understanding of basic joint protection principles referencing provided written and visual instructions from therapist on an as needed basis. *MET 09/29/20 Patient will be able to verbalize 2 to 3 different conservative pain management techniques for the hands referencing provided written and visual instructions from therapist on an as needed basis. *MET 09/29/20 Patient will be modified independent with distal UE home exercise program utilizing provided written and visual instructions from therapist. *MET 10/13/20 - Treatment 3 Descriptor Ultrasound. 1.8 w/cm2. 20% duty cycle. Address inflammation. x 10 minutes. R hand. Skin intact pre- and post- treatment. 2 Descriptor Manual therapy. Facilitation of R forearm supination. Facilitation of R wrist/digit extension. R carpal joint mobilizations. 1 Descriptor HEP/POC. Reviewed home exercise program. Patient reports executing stretches as tolerated; self-manual of bilateral thumb space leads to irritation/pain exacerbation of right shoulder. Attempted to adjust/modify manual release to avoid exacerbation of shoulder pain/discomfort. Did not tolerate modifications . Completing thumb/wrist stretches. Patient denied questions. - Assessment Assessment of Improvement Recommend d/c to HEP. Home Exercise Program Please refer to treatment section of note for specific details. - Plan Therapy Recommendations Discharge to Home Exercise Program
== END 2020-10-14 13:27 | disposition home or self-care (01) ==
LOC: OT 09:30
PROVIDERS: PCP Family Medicine; Referring Provider Family Medicine; Visit Provider Family Medicine
DX: M79.646 Pain in unspecified finger(s) (principal)
CPT/HCPCS: 97035; 97110; 97140; 97165; 97530

== ENCOUNTER → 2022-10-06 08:02 | Outpatient (CLI) | payer OTHER, SELFPAY ==
--- NOTE | 2022-10-06 | DI.MRI.S_ITS ---
PROCEDURE: MR SHOULDER RT W CON INDICATIONS: R GLENOID LABRAM TEAR TECHNIQUE: After the administration of 12 mL of dilute intra-articular Gadolinium contrast, oblique coronal T1 and T2 spin echo with fat saturation, oblique sagittal T1 spin echo with and without fat saturation, oblique sagittal T2 fast spin echo with fat saturation, axial T1 spin echo with fat saturation through the shoulder. COMPARISON: None. FINDINGS: Image quality: Excellent. Rotator cuff: Low to moderate grade articular and bursal surface partial thickness tear involving distal supraspinatus at its insertion on the humeral head is seen extending to musculotendinous junction. Distal infraspinatus and subscapularis tendinosis is seen. No full-thickness rotator cuff tendon rupture. No rotator cuff muscle atrophy on sagittal images. Bones and bursae: No bone marrow contusions or fractures. [id number] acromioclavicular joint osteoarthritic changes are seen with joint space narrowing, subchondral sclerosis and downward osteophyte formation depressing the musculotendinous junction of supraspinatus. The acromion demonstrates conventional anatomy, without an os acromiale. Capsule and soft tissues: There is signal abnormality, contour irregularity and contrast extension in posterior superior labrum at 10-11 o'clock position suggestive of superior anterior labral tear. The glenohumeral ligaments appear intact. The long head of the biceps tendon demonstrates normal location and morphology. The rotator interval appears normal, without fibrosis. The coracohumeral ligament is of normal thickness. No intra-articular bodies. IMPRESSION: 1. Low to moderate grade articular and bursal surface partial thickness tear involving distal supraspinatus extending to musculotendinous junction. Distal infraspinatus and subscapularis tendinosis. No full-thickness rotator cuff tendon rupture. 2. 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 No fracture or dislocation. No gross intra-articular loose bodies. 3. Suggestion of posterior superior labral tear at 10-11 o'clock position. Dictated by: Seth Burns M.D. on 10/06/2022 at 15:11 Approved by: Seth Burns M.D. on 10/06/2022 at 15:13
--- NOTE | 2022-10-06 | DI.RAD.S_ITS ---
PROCEDURE: FL SHOULDER INJECTION MR/CT RT INDICATIONS: R GLENOID LABRAM TEAR COMPARISON: None. TECHNIQUE: The indications, alternatives, benefits, risks, and complications of the procedure were explained to the patient. Written informed consent was obtained and placed in the chart. The shoulder was examined fluoroscopically and a site for needle placement chosen for entry into the glenohumeral joint from an anterior approach. The skin was prepped and draped in a sterile fashion, and 1% lidocaine infiltrated from skin down to joint capsule. A spinal needle was inserted into the glenohumeral joint, and a small amount of iodinated contrast media injected to confirm intra-articular placement of the needle tip. This was followed by approximately 12 mL dilute solution of a gadolinium containing MR contrast agent. The needle was removed and a dressing was applied. The patient was given postprocedural instructions and sent to the MR suite for MR imaging. FINDINGS: A single fluoroscopic spot image demonstrates intra-articular location of injected iodinated contrast. IMPRESSION: Successful fluoroscopically guided administration of dilute Gadolinium solution into the shoulder joint for MR arthrogram. Dictated by: Sang Dhillon M.D. on 10/06/2022 at 12:09 Approved by: Sang Dhillon M.D. on 10/06/2022 at 12:09
== END ==
PROVIDERS: PCP Internal Medicine; Referring Provider Orthopaedic Surgery; Visit Provider Orthopaedic Surgery
DX: S43.431A Superior glenoid labrum lesion of right shoulder, initial encounter (principal); S46.011A Strain of muscle(s) and tendon(s) of the rotator cuff of right shoulder, initial encounter; M19.011 Primary osteoarthritis, right shoulder; X58.XXXA Exposure to other specified factors, initial encounter
CPT/HCPCS: 23350; 73222; 77002

== ENCOUNTER 2023-07-12 09:59 | Emergency (ER) | payer OTHER, SELFPAY ==
[2023-07-12 10:02] VITALS: BP 144/96; PULSE 60; RESP 16; TEMP 36.7; O2SAT 97; BMI 28.5
--- NOTE | 2023-07-12 10:08 | DI.RAD.S_ITS ---
PROCEDURE: XR WRIST RT MIN 3V INDICATIONS: felt something while shoveling a heavy pumpkin TECHNIQUE: 4 views of the wrist were acquired. COMPARISON: None. FINDINGS: Bones: No acute fractures or dislocations. Healed fracture deformity of the 5th metacarpal. Small chronic appearing bony structure seen on the lateral view anteriorly. No suspicious bony lesions. Soft tissues: No suspicious soft tissue calcifications. IMPRESSION: No acute fracture. No osseous lesion. If symptoms and/or clinical suspicion for pathology persist, further assessment with repeat, or advanced imaging (e.g., CT, MRI, or bone scan) may be helpful for further assessment. Dictated by: Alexus Posey M.D. on 07/12/2023 at 10:34 Approved by: Alexus Posey M.D. on 07/12/2023 at 10:35
--- NOTE | 2023-07-12 11:25 | ED_ITS ---
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 He has previously seen the transcription specialist and received cortisone injections in this area. He has some baseline level of pain there. Over the past few days, he has done activities at work and at home that have exacerbated this pain. He lifted a heavy pumpkin over a railing and further injured it, now is experiencing pain at the base of his palm at the wrist crease. His hand is somewhat swollen. He has been taking naproxen and applying heat. He complains that it is difficult to make a fist and he can not lift anything or text on his phone. He denies any fall on the hand. He denies numbness or tingling. Related Data Allergies Allergy/AdvReac Type Severity Reaction Status Date / Time No Known Drug Allergies Allergy Verified 04/17/20 12:28 Review of Systems <Odilia Davenport PA-C - Last Filed: 07/12/23 11:33> Review of Systems ROS Unobtainable: All systems reviewed & are unremarkable except as noted in HPI and below Patient History <Odilia Davenport PA-C - Last Filed: 07/12/23 11:33> Medical History Asthma Social History Smoking Status: Never smoker Smoking Status: Never smoker alcohol intake frequency: 0-2 drinks per day Substance Use Type: does not use Exam <Odilia Davenport PA-C - Last Filed: 07/12/23 11:33> Narrative Exam Narrative: GENERAL: 42 year old patient appears stated age. Well-developed patient, in no acute distress. NEURO: AOx3. HEAD: Atraumatic. Normocephalic. EYES: Pupils equal round and reactive. Extraocular motions intact. No scleral icterus. No injection or drainage. ENT: Nose without bleeding or purulent drainage. Airway patent. RESPIRATORY: No distress. EXTREMITIES: Generalized edema of the right hand. + Constanza test. Tender to palpation over middle of wrist crease on palmar aspect. No overlying erythema or warmth. Sensation intact, capillary refill 2 seconds. SKIN: No rash or erythema of visible areas Initial Vital Signs Initial Vital Signs: Vital Signs Temperature 98.0 F 07/12/23 10:02 Pulse Rate 60 07/12/23 10:02 Respiratory Rate 16 07/12/23 10:02 Blood Pressure 144/96 H 07/12/23 10:02 Pulse Oximetry 97 07/12/23 10:02 Oxygen Delivery Method Room Air 07/12/23 10:02 <Apryl Lopez DO - Last Filed: 07/17/23 20:07> Initial Vital Signs Initial Vital Signs: Vital Signs Temperature 98.0 F 07/12/23 10:02 Pulse Rate 60 07/12/23 10:02 Respiratory Rate 16 07/12/23 10:02 Blood Pressure 144/96 H 07/12/23 10:02 Pulse Oximetry 97 07/12/23 10:02 Oxygen Delivery Method Room Air 07/12/23 10:02 Course <Odilia Davenport PA-C - Last Filed: 07/12/23 11:33> Orders Ordered: ED Orders 07/12/23 10:08 XR wrist RT min 3V Stat Vital Signs Vital signs: Vital Signs - 8 hr 07/12/23 10:02 Temperature 98.0 F Pulse Rate 60 Respiratory Rate 16 Blood Pressure 144/96 H Pulse Oximetry 97 Oxygen Delivery Method Room Air <DO Yesica Gutierrez Last Filed: 07/17/23 20:07> Orders Ordered: ED Orders 07/12/23 10:08 XR wrist RT min 3V Stat Vital Signs Vital signs: Vital Signs - 8 hr 07/12/23 10:02 Temperature 98.0 F Pulse Rate 60 Respiratory Rate 16 Blood Pressure 144/96 H Pulse Oximetry 97 Oxygen Delivery Method Room Air MDM - Extremity Injury (Upper) <Odilia Davenport PA-C - Last Filed: 07/12/23 11:33> Imaging Data Extremity x-ray #1: Radiologist's Impression: PROCEDURE: XR WRIST RT MIN 3V INDICATIONS: felt something while shoveling a heavy pumpkin TECHNIQUE: 4 views of the wrist were acquired. COMPARISON: None. FINDINGS: Bones: No acute fractures or dislocations. Healed fracture deformity of the 5th metacarpal. Small chronic appearing bony structure seen on the lateral view anteriorly. No suspicious bony lesions. Soft tissues: No suspicious soft tissue calcifications. IMPRESSION: No acute fracture. No osseous lesion. If symptoms and/or clinical suspicion for pathology persist, further assessment with repeat, or advanced imaging (e.g., CT, MRI, or bone scan) may be helpful for further assessment. Dictated by: Alexus Posey M.D. on 07/12/2023 at 10:34 Approved by: Alexus Posey M.D. on 07/12/2023 at 10:35 [facility] Narrative Medical decision making narrative: Multiple etiologies for patient's symptoms considered including, but not limited to: Fracture, dislocation, de Quervain tenosynovitis, strain/sprain There is no evidence of cellulitis or septic joint on exam. Constanza test is positive for de Quervain tenosynovitis. X-rays negative. Suspect tenosynovitis and strain. Advised rest, ice, NSAIDs, immobilization with personal thumb spica splint (at bedside) and follow up with Orthopedics. Referral placed. Patient was seen by ortho before and knows how contact. Re turn precautions advised. Patient's symptoms improved over duration of stay with above-stated therapies. Findings and discharge diagnosis discussed with patient/family followed by verbalization of understanding Return precautions discussed with patient/family whom verbalize understanding of diagnosis and plan Discharge Plan Departure Patient Disposition: Home Clinical Impression: Tenosynovitis of right wrist Strain of right wrist Qualifiers: Encounter type: initial encounter Qualified Code(s): S66.911A - Strain of unspecified muscle, fascia and tendon at wrist and hand level, right hand, initial encounter Instructions: DI for Wrist Sprain, DI for Tendinitis Activity Restrictions/Additional Instructions: *You have been diagnosed with right wrist tenosynovitis and right wrist strain. There is no evidence of fracture on your xray. I advise you to apply ice for 15 minutes every 1-2 hours while awake, take NSAIDs on a schedule and wear your wrist brace to provide immobilization. Please contact [facility] to schedule a follow-up. *What to do: *Please continue to take your regular medications as directed. [ ] New medication prescriptions sent to your pharmacy: [ ] [ ] New medication written as a paper prescription [x] No new medications given *Please follow up with your primary care provider in 2-3 days, call for an appointment. Let them know you were seen in the Emergency Department and that we ask that you be seen in follow up. We will electronically transmit a record of today's note if your PCP is in our system *If you do not have a primary care provider please contact the [facility] Resource line at [phone]. They will ask some questions about your medical history and help get you set up with a doctor in the community. *Return to Emergency Department if you should have any new, worsening or concerning symptoms, such as [fever greater than 101 F, shaking chills, worsening pain, persistent vomiting or other concerning symptoms]. Referrals: [facility] [Provider Group] Stephany French MD [Primary Care Provider] - Stand Alone Forms: Patient Portal/API ED Sign-out <Apryl Lopez DO - Last Filed: 07/17/23 20:07> Cosign ED Attending Dulceature Attestation: I was immediately available in the department for consultation.
== END 2023-07-12 11:10 | disposition home or self-care (01) ==
PROVIDERS: Emergency Provider Physician Assistant; PCP Internal Medicine
DX: S66.911A Strain of unspecified muscle, fascia and tendon at wrist and hand level, right hand, initial encounter (principal); M65.9 Synovitis and tenosynovitis, unspecified
CPT/HCPCS: 73110; 99281; 99283

== ENCOUNTER → 2023-10-19 11:59 | Outpatient (CLI) | payer OTHER, SELFPAY | LOC: RESP 12:00 | PROVIDERS: PCP Internal Medicine; Referring Provider Internal Medicine; Visit Provider Internal Medicine | DX: J45.998 Other asthma (principal) | CPT/HCPCS: 94060; 94726; 94729 ==

== ENCOUNTER → 2023-10-23 08:35 | Outpatient (CLI) | payer OTHER, SELFPAY ==
--- NOTE | 2023-10-23 08:37 | DI.MRI.S_ITS ---
PROCEDURE: MR WRIST RT WO CON INDICATIONS: radial styloid tenosynovitis [de Quervain] TECHNIQUE: Noncontrast coronal proton density fast spin echo and T2 fast spin echo with fat saturation; coronal 3-D gradient echo, axial T1 spin echo and T2 fast spin echo with fat saturation, sagittal T1 spin echo through the wrist. COMPARISON: None. FINDINGS: Image quality: Excellent. Bones and cartilage: Osteoarthritic changes are noted along radial aspect of right wrist most notably involving 1st CMC joint and triscaphe joint. There is edema involving trapezium and adjacent 1st metacarpal base with subcortical cystic changes involving 1st metacarpal base. No discrete fracture line is seen. No suspicious bony lesions. No evidence of avascular necrosis. Carpal ligaments: The scapholunate and lunotriquetral ligaments appear intact. In the absence of intra-articular contrast, the extrinsic carpal ligaments are not well identified. On sagittal images, the pisohamate ligament appears intact. Triangular fibrocartilage complex: The triangular fibrocartilage appears intact. The adjacent meniscal homolog appears normal in the absence of intra-articular contrast. The extensor carpi ulnaris tendon is mildly thickened at the level of distal ulnar/ulnar styloid. Tendons and soft tissues: There is thickened extensor pollicis brevis tendon and abductor pollicis longus tendon at the level of radial styloid extending to the level of 1st CMC joint. The carpal tunnel structures appear normal, including the median nerve. The ulnar nerve appears normal within Guyon's canal. Rest of the extensor tendons are intact. No soft tissue ganglion cysts. IMPRESSION: 1. Osteoarthritic changes along radial aspect of right wrist most notably involving 1st CMC joint and triscaphe joint. Edema is seen involving 1st metacarpal base and adjacent trapezium without definite fracture line suggestive of contusion versus changes secondary to osteoarthritis. No acute fracture or dislocation. No evidence of avascular necrosis. 2. Mild tendinosis involving extensor pollicis brevis and abductor pollicis longus tendons at the level of distal radius extending to the level of 1st CMC joint. Mild tendinosis involving extensor carpi ulnaris tendon at the level ulnar styloid. No extensor or flexor tendon rupture. 3. Scapholunate and lunotriquetral ligaments are intact. Triangular fibrocartilage complex is grossly intact. Dictated by: Seth Burns M.D. on 10/23/2023 at 11:00 Approved by: Seth Burns M.D. on 10/23/2023 at 11:19
== END ==
PROVIDERS: PCP Internal Medicine; Referring Provider Orthopaedic Surgery; Visit Provider Orthopaedic Surgery
DX: M65.4 Radial styloid tenosynovitis [de Quervain] (principal); R60.0 Localized edema
CPT/HCPCS: 73221

== ENCOUNTER → 2023-10-25 13:03 | Outpatient (CLI) | payer OTHER, SELFPAY ==
--- NOTE | 2023-10-25 13:04 | DI.MRI.S_ITS ---
PROCEDURE: MR HAND RT WO CON INDICATIONS: Radial styloid tenosynovitis [de Quervain] TECHNIQUE: Noncontrast coronal T1 spin echo and T2 fast spin echo with fat saturation, axial proton density fast spin echo and T2 fast spin echo with fat saturation, sagittal T1 spin echo and STIR through the hand and fingers. COMPARISON: [facility], MR, MR WRIST RT WO CON, 10/23/2023, 8:49. FINDINGS: Image quality: Excellent. Bones: Severe degenerative changes of the 1st carpal metacarpal and moderate changes at the triscaphe joint, with marked subchondral marrow edema and subchondral cystic changes, most pronounced at the base of the 1st metacarpal. Moderate amount of fluid in the 1st carpal metacarpal joint. Fragmentation of the trapezium. There is mild muscle edema with small amount of fluid along the myotendinous junction of the 1st dorsal interossei, raising concern for mild muscle strain. Interphalangeal joint(s): The accessory and proper collateral ligaments appear intact. The volar plate demonstrates normal morphology. The extensor central slips appear intact on sagittal images. Metacarpophalangeal joint(s): The accessory and proper collateral ligaments appear intact, as well as the volar plate and adjacent deep transverse metacarpal ligaments. The sagittal bands of the extensor bazzi appear normal. Extensor apparatus: The central slips insert normally on the middle phalangeal base. The conjoint and terminal tendons insert normally on the distal phalangeal bases. More proximal portions of the extensor tendons also appear normal. Flexor apparatus: The flexor digitorum superficialis and profundus tendons both appear intact. All annular and cruciform pulleys appear intact, without adjacent soft tissue edema. Soft tissues: No ganglion cyst. IMPRESSION: 1. Severe degenerate change of the 1st carpometacarpal joint and moderate degenerative change of the triscaphe joint. 2. Fragmentation of the trapezium, which may be degenerative, posttraumatic, or secondary to avascular necrosis. 3. Small amount of fluid with muscle edema along the mild tendinous junction of the 1st dorsal interossei, raising concern for mild muscle strain. Dictated by: Ernestine Harris M.D. on 10/26/2023 at 10:12 Approved by: Ernestine Harris M.D. on 10/26/2023 at 10:28
== END ==
LOC: MRI 13:03
PROVIDERS: PCP Internal Medicine; Referring Provider Orthopaedic Surgery; Visit Provider Orthopaedic Surgery
DX: M65.4 Radial styloid tenosynovitis [de Quervain] (principal)
CPT/HCPCS: 73218

== ENCOUNTER 2024-06-10 10:19 | Emergency (ER) | payer OTHER, SELFPAY ==
[2024-06-10 10:34] VITALS: BP 136/85; PULSE 78; RESP 16; TEMP 36.9; O2SAT 97; BMI 27.8
--- NOTE | 2024-06-11 11:36 | ED.SKABFB ---
HPI - Skin/Abscess/Foreign Bdy <Jayne Barron PA-C - Last Filed: 06/11/24 12:40> General Chief complaint: Skin/Abscess/Foreign Body Stated complaint: rash on legs Time Seen by Provider: 06/10/24 12:06 History of Present Illness HPI narrative: 43-year-old male presents to the ED with a itchy rash on bilateral lower legs, trunk. Patient states that he had a fungal infection on his feet just prior to this rash spreading to his lower legs and trunk. Patient states it is very itchy. No fever, chills. No mucosal involvement. Patient has been applying antifungal cream with little improvement. Patient states that the rash on his feet resolved with the same cream. Related Data Previous Rx's Medication Instructions Recorded fluconazole 200 mg tablet 200 mg PO WEEKLY 4 weeks #4 tabs 06/10/24 Allergies Allergy/AdvReac Type Severity Reaction Status Date / Time No Known Drug Allergies Allergy Verified 04/17/20 12:28 Review of Systems <Jayne Barron PA-C - Last Filed: 06/11/24 12:40> Constitutional Constitutional: Denies chills, Denies fatigue, Denies fever(s), Denies frequent falls, Denies lethargy and Denies weakness Eyes Eyes: Denies change in vision, Denies eye discharge, Denies irritation and Denies loss of vision ENT Ears, Nose, Mouth, and Throat: Denies change in voice, Denies dizziness, Denies neck pain, Denies sore throat and Denies throat swelling Cardiovascular Cardiovascular: Denies chest pain, Denies irregular heart rhythm, Denies lightheadedness, Denies palpitations, Denies dyspnea, Denies dyspnea on exertion and Denies orthopnea Respiratory Respiratory: Denies cough, Denies dyspnea, Denies dyspnea on exertion and Denies wheezing Gastrointestinal Gastrointestinal: Denies abdominal pain, Denies change in bowel habits, Denies diarrhea, Denies nausea and Denies vomiting Musculoskeletal Musculoskeletal: Denies neck pain and Denies numbness Integumentary/Breasts Skin/Breast: Denies pruritus, Denies erythema, Reports rash and Denies wounds Neurologic Neurologic: Denies behavioral changes, Denies confusion, Denies dizziness, Denies frequent falls, Denies loss of vision, Denies numbness and Denies weakness Psychiatric Psychiatric: Denies anxiety, Denies behavioral changes, Denies confusion, Denies depression, Denies homicidal ideation and Denies suicidal ideation Endocrine Endocrine: Denies fatigue, Denies flushing and Denies palpitations Hematologic/Lymphatic Hematologic/Lymphatic: Denies easy bruising Allergic/Immunologic Allergic/Immunologic: Denies urticaria, Denies throat swelling and Denies wheezing Patient History <Jayne Barron PA-C - Last Filed: 06/11/24 12:40> Medical History Asthma Social History Smoking Status: Never smoker Smoking Status: Never smoker alcohol intake frequency: 0-2 drinks per day Exam <Jayne Barron PA-C - Last Filed: 06/11/24 12:40> Narrative Exam Narrative: Const General:?cooperative, healthy appearing and comfortable HENMT Head:?normal to inspection Ears:?hearing grossly normal bilaterally Nose:?external nose normal Face and sinus:?normal facial exam and sinuses nontender Mouth:?oral mucosae normal Throat:?posterior oropharynx normal Eyes General:?appearance normal, both eyes and all related structures Neck Neck:?normal visual inspection and no lymphadenopathy noted Resp Effort & Inspection:?normal respiratory effort Auscultation:?clear to auscultation bilaterally Cardio Rate:?regular rate Rhythm:?regular rhythm Integumentary There are multiple circular, erythematous lesions on bilateral lower legs, trunk. Consistent with tinea corporis. No superimposed bacterial infection Neuro General:?patient alert, patient awake and patient oriented x3 Initial Vital Signs Initial Vital Signs: Vital Signs Temperature 98.5 F 06/10/24 10:34 Pulse Rate 78 06/10/24 10:34 Respiratory Rate 16 06/10/24 10:34 Blood Pressure 136/85 06/10/24 10:34 Pulse Oximetry 97 06/10/24 10:34 Oxygen Delivery Method Room Air 06/10/24 10:34 <Cori Gramajo DO - Last Filed: 06/11/24 12:49> Initial Vital Signs Initial Vital Signs: Vital Signs Temperature 98.5 F 06/10/24 10:34 Pulse Rate 78 06/10/24 10:34 Respiratory Rate 16 06/10/24 10:34 Blood Pressure 136/85 06/10/24 10:34 Pulse Oximetry 97 06/10/24 10:34 Oxygen Delivery Method Room Air 06/10/24 10:34 MDM - Skin/Abscess/Foreign Bdy <Jayne Barron PA-C - Last Filed: 06/11/24 12:40> MDM Narrative Medical decision making narrative: 43-year-old male presents to the ED with a itchy rash on bilateral lower legs, trunk. On physical exam, rash is most consistent with tinea corporis. Given that patient has failed topical treatment, prescribed fluconazole. Recommend follow-up with PCP. ED return precautions were discussed with patient. Patient verbalized understanding. Medical records reviewed: Yes Discharge Plan Departure Patient Disposition: Home Clinical Impression: Tinea corporis Instructions: DI for Tinea Corporis Activity Restrictions/Additional Instructions: Evaluated in the ED today for a rash. You are being prescribed fluconazole for fungal infection. Please take 1 weekly for 4 weeks. Please follow-up with your primary care provider as soon as possible. Return to the ED if you have worsening symptoms. Prescriptions: New fluconazole 200 mg tablet 200 mg PO WEEKLY 28 Days Qty: 4 0RF Referrals: Stephany French MD [Primary Care Provider] - Stand Alone Forms: Patient Portal/API/Survey ED Sign-out <Cori Gramajo DO - Last Filed: 06/11/24 12:49> Cosign ED Attending Dulceature Attestation: I was available for consultation.
== END 2024-06-10 12:52 | disposition home or self-care (01) ==
PROVIDERS: Emergency Provider Student in an Organized Health Care Education/Training Program; PCP Internal Medicine
DX: B35.4 Tinea corporis (principal)
CPT/HCPCS: 99281

== ENCOUNTER → 2024-07-23 14:43 | Outpatient (CLI) | payer OTHER, SELFPAY ==
--- NOTE | 2024-07-23 14:44 | DI.CT.S_ITS ---
PROCEDURE: CT CHEST WO CON INDICATIONS: HX OF EXPOSURES, ASTHMA AND GRESHAM TECHNIQUE: Noncontrast 5 mm thick sections acquired from the pulmonary apices to the posterior costophrenic angles. 1 mm lung window, 5 mm thick coronal and sagittal and 7 mm axial MIP reformats were then acquired. For radiation dose reduction, the following was used: automated exposure control, adjustment of mA and/or kV according to patient size. COMPARISON: None. FINDINGS: Image quality: Diagnostic. Thyroid: Within normal limits. Cardiac: Heart size within normal limits. No pericardial effusion. Aorta: Thoracic aortic diameter within normal limits. Pulmonary Artery: Main pulmonary artery diameter within normal limits. Lungs: No focal lung consolidation. 2 mm solid nodule in the superior segment of the right lower lobe (3/138). Pleura: No pneumothorax or pleural effusion. Airways: The trachea and mainstem bronchi are patent. Lymph Nodes: No mediastinal, hilar, or axillary lymphadenopathy. Esophagus: Within normal limits. Bones: No acute osseous abnormality. Upper Abdomen: Diffuse hepatic hypoattenuation. IMPRESSION: 1. Right lower lobe superior segment 2 mm solid nodule. Per the 2017 Fleischner Society recommendations for single solid lung nodule follow-up, no further follow-up is necessary. 2. Hepatic steatosis. 3. No other acute CT abnormality of the chest. Dictated by: Manuel Smith M.D. on 07/24/2024 at 8:52 Approved by: Manuel Smith M.D. on 07/24/2024 at 8:57
== END ==
PROVIDERS: PCP Internal Medicine; Referring Provider Nurse Practitioner Acute Care; Visit Provider Nurse Practitioner Acute Care
DX: J45.40 Moderate persistent asthma, uncomplicated (principal); R91.1 Solitary pulmonary nodule; K76.0 Fatty (change of) liver, not elsewhere classified
CPT/HCPCS: 71250

== ENCOUNTER → 2025-02-20 09:38 | Outpatient (CLI) | payer OTHER, SELFPAY ==
--- NOTE | 2025-02-20 09:41 | DI.US.S_ITS ---
PROCEDURE: US ABDOMEN LIMITED INDICATIONS: ELEVATED TRANSAMINASES TECHNIQUE: Real-time focused scanning was performed of the abdomen, with image documentation. COMPARISON: None. FINDINGS: The liver demonstrates moderately enlarged size. The liver demonstrates generalized moderately increased echogenicity. This decreases ultrasound sensitivity for detection of hepatic masses. No findings of gallstones or sludge are seen. The gallbladder wall is not thickened, measuring 3 mm or less. No specific pericholecystic fluid is seen. The sonographic Latif sign is negative. There is no biliary dilatation, the common bile duct measures 5 mm. No significant pancreatic abnormality is seen on these images. The visualized right kidney is unremarkable, without hydronephrosis. No free fluid can be seen. IMPRESSION: Enlarged, fatty infiltrated liver. Dictated by: Tuan Prasad M.D. on 02/20/2025 at 13:03 Approved by: Tuan Prasad M.D. on 02/20/2025 at 13:03
== END ==
PROVIDERS: PCP Internal Medicine; Referring Provider Nurse Practitioner Family; Visit Provider Nurse Practitioner Family
DX: Z01.89 Encounter for other specified special examinations (principal); K76.0 Fatty (change of) liver, not elsewhere classified
CPT/HCPCS: 76705